=== PATIENT | female | born 1975 | race Caucasian/White ===

== ENCOUNTER 2016-09-12 22:55 | Observation (INO) | payer OTHER ==
[2016-09-12] MEDS ORDERED: ASPIRIN 81 MG CHEW PO STA (23:16)
[2016-09-12] MEDS ORDERED: MORPHINE SULFATE 4 MG/ML SYRINGE IV STA (23:16)
[2016-09-12] MEDS ORDERED: FAMOTIDINE 20 MG/2 ML VIAL IV STA (23:17)
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
[2016-09-12 23:42] LABS: Basophils # (A) 0.2 k/uL (0-0.2); Basophils % (A) 1 %; CH 31.1; Eosinophils # (A) 0.4 k/uL (0-0.7); Eosinophils % (A) 4 %; HCT 46.6 % (34.0-46.0); HDW 2.28; HGB 15.2 gm/dL (11.4-16.0); Luc # (Auto) 0.34; Luc % (Auto) 3; Lymphocytes # (A) 3.1 k/uL (1.0-4.8); Lymphocytes % (A) 26 %; MCH 30.9 pg (25.0-35.0); MCHC 32.6 g/dL (31.0-37.0); MCV 94.9 fL (80.0-100.0); Mean Platelet Volume 7.6; Monocytes # (A) 0.5 k/uL (0-1.0); Monocytes % (A) 4 %; Neutrophils # (A) 7.6 k/uL (1.3-7.7); Neutrophils % (A) 63 %; RBC 4.92 m/uL (3.80-5.40); RDW 13.1 % (11.5-15.5); WBC 12.1 k/uL (3.8-10.6); WBC (Perox) 11.53
[2016-09-12 23:53] LABS: ALT 84 U/L (9-52); AST 33 U/L (14-36); Alkaline Phosphatase 134 U/L (38-126); Anion Gap 12 mmol/L; Blood Urea Nitrogen 17 mg/dL (7-17); Carbon Dioxide 27 mmol/L (22-30); Chloride 102 mmol/L (98-107); Glucose 101 mg/dL (74-99); Magnesium 1.4 mg/dL (1.6-2.3); Non-African American GFR(MDRD) >60 (>60 ml/min/1.73 sqM); Potassium 4.3 mmol/L (3.5-5.1); Sodium 141 mmol/L (137-145); Total Bilirubin 0.3 mg/dL (0.2-1.3); Total Protein 7.7 g/dL (6.3-8.2)
[2016-09-12 23:57] LABS: INR 0.9 (<1.1); Partial Thromboplastin Time 23.7 sec (22.0-30.0); Prothrombin Time 9.5 sec (9.0-12.0)
[2016-09-13 00:09] LABS: Creatine Kinase 40 U/L (30-135)
--- NOTE | 2016-09-13 00:17 | XR ---
EXAM: XR Chest, 2 Views. CLINICAL HISTORY: Reason: Chest Pain TECHNIQUE: Frontal and lateral views of the chest. COMPARISON: Chest x-ray 01/25/16 FINDINGS: Lungs: No consolidation. Pleural space: Unremarkable. No pneumothorax. Heart: Mild cardiomegaly. Mediastinum: Unremarkable. Probable hilar - infrahilar nodes Bones/joints: No acute fracture. IMPRESSION: No consolidation or overt failure.
[2016-09-13] MEDS ORDERED: HYDROmorphone 1 MG/ML 1 ML SYRINGE IVP STA (00:21)
[2016-09-13 00:23] LABS: Creatine Kinase MB <0.2 ng/mL (0.0-2.4); Troponin I <0.012 ng/mL (0.000-0.034)
[2016-09-13] MEDS ORDERED: MAGNESIUM OXIDE 400 MG TAB PO STA (00:31)
[2016-09-13] MEDS ORDERED: HEPARIN SODIUM,PORCINE 5,000 UNIT/ML 1 ML VIAL IV ONE (00:33)
[2016-09-13] MEDS ORDERED: NITROGLYCERIN SL TABS 0.4 MG TAB SUBLINGUAL PRN (00:33)
[2016-09-13] MEDS ORDERED: HEPARIN SODIUM,PORCINE/D5W PMX 25,000 UNIT in DEXTROSE/WATER 1 500ML.BAG IV SCH (00:45)
[2016-09-13 01:52] VITALS: BMI 28.9
[2016-09-13] MEDS ORDERED: ALPRAZolam 0.5 MG TAB PO STA (02:44)
[2016-09-13] MEDS: MORPHINE SULFATE 4 MG/ML SYRINGE IV PRN ×4 (02:51→13:46)
[2016-09-13 05:08] VITALS: RESP 16
[2016-09-13 07:19] LABS: Creatine Kinase 35 U/L (30-135)
[2016-09-13 07:32] LABS: Creatine Kinase MB <0.2 ng/mL (0.0-2.4); Troponin I <0.012 ng/mL (0.000-0.034)
[2016-09-13 08:39] VITALS: PULSE 83
[2016-09-13] MEDS ORDERED: DOBUTamine DRIP for NUC MED 500 MG in DEXTROSE/WATER 1 250ML.BAG IV ONE (08:58)
[2016-09-13] MEDS ORDERED: VENLAFAXINE HCL ER 150 MG CAP PO SCH (09:00)
[2016-09-13] MEDS ORDERED: ALPRAZolam 0.5 MG TAB PO SCH (09:00)
[2016-09-13] MEDS ORDERED: ATENOLOL 50 MG TAB PO SCH (09:00)
[2016-09-13] MEDS ORDERED: ALBUTEROL NEBULIZED 2.5 MG/3 ML INHALATION PRN (09:06)
--- NOTE | 2016-09-13 11:12 | ECHOS ---
DATE OF SERVICE: 09/13/2016 AGE: 40Y SEX: F HT: 67 WT: 184 lbs. Protocol Brendan: Others: Dobutamine Stress Echo Stage: Dur. of Exercise: *Heart Rate Blood Pressure *Rest: 86 Rest: 106/69 * *Max. Achieved: 151 Maximum BP: 132/52 85% PMHR: 151 100% PMHR: 178 *METS: INDICATIONS: Chest pain. MEDICATIONS: Baseline EKG shows sinus rhythm, normal axis, normal intervals. Patient was given intravenous dobutamine over a period of 9 minutes as per protocol achieving 85% of predicted maximal heart rate without chest pain or diagnostic ST segment depression. Baseline echo shows normal left ventricular size, wall motion and systolic function. Postexercise, there is normal hyperdynamic response of all segments of myocardium noted. CONCLUSION: 1. Negative stress test by EKG criteria. 2. Negative stress dobutamine echo.
--- NOTE | 2016-09-13 12:03 | CONS ---
DATE OF CONSULTATION: Patient is allergic to PENICILLIN. REASON FOR CONSULTATION: Cardiac evaluation and treatment, is noted to have ( ) chest pain. Marci Gooden is a mother of 3 children, 1 daughter and 2 sons. Patient is a heavy smoker and has been smoking since age 15 and used to smoke up to 2 packs, currently smoking 1 pack. Has been having recurrent chest pains. Patient was seen with chest pains which are atypical, not classical anginal symptoms, described as a shooting pain under the breast lasting for about 1 to 1-1/2 minutes with some numbness in the left hand one time without any radiation. Patient's pains usually come at rest when she is watching TV not with physical activity. 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 Patient claims her pains get better with nitroglycerin. Last night she has taken 4 sublingual nitroglycerin tablets without any improvement in her symptoms. Patient's EKGs on admission showed sinus tachycardia without any acute ischemic changes. Cardiac enzymes have been negative. The patient did have a stress test was admitted last year in December. Patient walked on the treadmill for 7 minutes without reaching the 85% predicted maximum heart rate. Patient was around 131 when it needs to go up to 140, 150. ( ) patient's atypical symptoms and negative enzymes and history of smoking without any history of hypertension or hyperlipidemia. No history of diabetes. Patient does have strong family history of coronary artery disease. Father of myocardial infarction in his 50s. No history of drug abuse. Patient does not do any regular exercise on a regular basis. The patient is not on any medications on a regular basis. Patient is on antidepressant medications venlafaxine 150 mg p.o. daily, nitroglycerin as needed, aspirin 1 tablet daily, alprazolam as needed 2 or 3 times a day, Patient's past history is unremarkable other than hysterectomy and gallbladder surgery, otherwise unremarkable. Physical examination revealed well-developed, well-nourished 40-year-old female not in any acute distress with a pulse rate of 96 beats per minute and regular, blood pressure 119/77, respirations of 16. HEAD: Normocephalic. HEENT: Unremarkable. NECK: Neck is supple. No thyroid enlargement. No bruit noted. Good carotid upstroke bilaterally. CHEST: Chest is symmetrical. CARDIAC EXAMINATION: Regular rate and rhythm. S1 and S2. Lungs are clinically clear to auscultation and percussion. ABDOMEN: Soft, no organomegaly. Active bowel sounds. EXTREMITIES: Peripheral pulses. No pedal edema. LATHE SPOTTER EXAMINATION: Grossly within normal limits. EKG revealed normal sinus rhythm, normal ST-T waves. Troponin x2 are negative. D-dimer is negative. ASSESSMENT: 1. Atypical chest pains. 2. Strong family history of coronary artery disease in the father. at age 50. 3. Long-standing history of smoking. RECOMMENDATIONS: Proceed with a dobutamine stress echocardiogram. If the dobutamine stress echocardiogram is normal, patient may be able to go home on current medications along with complete cessation of smoking and atenolol and nitroglycerin as needed and aspirin. We will also check the lipid panel. If the lipids are elevated, we will start her on lipid-lowering agent.
[2016-09-13 12:20] LABS: Creatine Kinase 33 U/L (30-135)
[2016-09-13 12:21] VITALS: BP 103/59; TEMP 98.2
[2016-09-13 12:31] LABS: Creatine Kinase MB <0.2 ng/mL (0.0-2.4); Troponin I <0.012 ng/mL (0.000-0.034)
--- NOTE | 2016-09-13 20:36 | HP ---
H&P AND DISCHARGE SUMMARY DATE OF ADMISSION: Patient is a 40-year-old female who came in with complaints of chest pain under the left breast area, sharp in nature, radiating to the left arm. Tightness, relieved with 4 nitroglycerin. Denied any diaphoresis. Denied any nausea or vomiting. Patient had tingling and numbness in the left arm. Patient was admitted here. Patient also described ( ) not associated with food. Patient denied any shortness of breath. ( ) Cardiology. Patient underwent stress test which was negative. Patient was also complaining of some non-specific symptoms, acid reflux symptoms. REVIEW OF SYSTEMS: CONSTITUTIONAL: No fever, no malaise, no fatigue. HEENT: No recent visual problems or hearing problems. Denied any sore throat. CARDIOVASCULAR: As described in HPI. PULMONARY: No shortness of breath, no cough, no hemoptysis. GASTROINTESTINAL: As described in HPI. NEUROLOGICAL: No headaches, no weakness, no numbness. HEMATOLOGICAL: Denies any bleeding or petechiae. GENITOURINARY: Denies any burning micturition, frequency, or urgency. MUSCULOSKELETAL/RHEUMATOLOGICAL: Denies any joint pain, swelling, or any muscle pain. ENDOCRINE: Denies any polyuria or polydipsia. The rest of the 14 point review of systems is negative. Home medications include: 1. Estradiol. 2. Hydrocodone/acetaminophen. 3. Remeron. 4. Venlafaxine. 5. Nitroglycerin sublingually. ALLERGIES: PENICILLIN. PAST MEDICAL HISTORY: Patient states she ( ) myocardial infarction in the past. Chronic low back pain. Degenerative arthritis. Patient had a cardiac catheterization in the past, which I cannot verify at this time. Patient has anxiety disorder. Patient does smoke. Occasionally uses marijuana. Social History: As mentioned in assessment. Family History: Dnied history of premature CAD PHYSICAL EXAMINATION: VITAL SIGNS: Temperature 98.2, pulse of 92, respiratory rate of 18. Blood pressure is 110/68. Patient when she came in was tachycardic. Patient takes atenolol at home. Once she was given atenolol ( ) resolved. GENERAL: The patient is alert and oriented x3, not in any acute distress. Well developed, well nourished. HEENT: Pupils are round and equally reacting to light. EOMI. No scleral icterus. No conjunctival pallor. Normocephalic, atraumatic. No pharyngeal erythema. No thyromegaly. CARDIOVASCULAR: S1 and S2 present. No murmurs, rubs, or gallops. PULMONARY: Chest is clear to auscultation, no wheezing or crackles. ABDOMEN: Soft, nontender, nondistended, normoactive bowel sounds. No palpable organomegaly. MUSCULOSKELETAL: No joint swelling or deformity. EXTREMITIES: No cyanosis, clubbing, or pedal edema. NEUROLOGICAL: Gross neurological examination did not reveal any focal deficits. SKIN: No rashes. LABORATORY DATA: CBC, CMP essentially within normal limits. Serial troponins and chest x-ray and the D-dimer all are negative. ASSESSMENT AND PLAN: 1. Chest pain. Ruled out acute coronary artery syndromes, unstable angina ( ) pulmonary embolism patient does not have any pneumonia. Patient's chest pain is probably either musculoskeletal or patient has narcotic-seeking behavior, and this is related to her malingering for narcotics. Anyway, patient was asked to follow up with her primary care physician ( ) above-mentioned problems, and patient will be discharged today. 2. Hypertension. 3. Depression. 4. Marijuana use. 5. Alcohol use. Provided extensive counseling. Patient will be discharged today to follow up with her primary care physician. Cardiac diet. Activity as tolerated. This dictation is both H&P and discharge summary. [facility]
[2016-09-13] MEDS ORDERED: MIRTAZAPINE 45 MG TABLET PO SCH (21:00)
[2016-09-14] MEDS ORDERED: ASPIRIN 325 MG TAB PO SCH (09:00)
[2016-09-14] MEDS ORDERED: ESTRADIOL 1 MG TAB PO SCH (09:00)
== END 2016-09-13 15:35 | disposition home or self-care (01) ==
LOC: EC 22:55 → 3OBS 09-13 00:36
PROVIDERS: ADMIT Internal Medicine; ATTEND Internal Medicine
DX: R07.89 Other chest pain (principal); F41.9 Anxiety disorder, unspecified; R20.0 Anesthesia of skin; I10 Essential (primary) hypertension; Z76.5 Malingerer [conscious simulation]; F32.9 Major depressive disorder, single episode, unspecified; F12.90 Cannabis use, unspecified, uncomplicated; F17.200 Nicotine dependence, unspecified, uncomplicated; Z88.0 Allergy status to penicillin; Z82.49 Family history of ischemic heart disease and other diseases of the circulatory system; K21.9 Gastro-esophageal reflux disease without esophagitis; Z79.890 Hormone replacement therapy; Z79.899 Other long term (current) drug therapy; I25.2 Old myocardial infarction; M54.9 Dorsalgia, unspecified; M89.29 Other disorders of bone development and growth, multiple sites
CPT/HCPCS: 36415; 93005; 93350; 85379; 83880; 80053; 82550 ×2; 93017; 82553 ×2; 83735; 84484 ×2; 85025; 85610; 85730 ×2; 71020; 99285; 96375 ×3; 96376; G0378; J1250; J2270 ×2; J1644 ×2; J1170; 96366

== ENCOUNTER 2018-08-12 19:51 | Emergency (ER) | payer OTHER ==
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
[2018-08-12 21:36] LABS: Amphetamine Screen,Urine Detected (NotDetected); Barbiturate Screen,Urine Not Detected (NotDetected); Benzodiazepines Screen,Urine Not Detected (NotDetected); Cocaine Screen,Urine Not Detected (NotDetected); Methadone Screen, Urine Not Detected (NotDetected); Opiate Screen,Urine Not Detected (NotDetected); Oxycodone Screen, Urine Not Detected (NotDetected); Phencyclidine Screen,Urine Not Detected (NotDetected); Tricyclic Antidepressant,Urine Not Detected (NotDetected); Urn Cannabinoid Scrn Detected (NotDetected)
[2018-08-12] MEDS ORDERED: KETOROLAC 60 MG/2 ML VIAL IM STA (21:51)
[2018-08-12 22:56] VITALS: BP 121/73; PULSE 71; RESP 18; TEMP 98.4
== END 2018-08-12 22:55 | disposition home or self-care (01) ==
LOC: EC 19:51
DX: F15.90 Other stimulant use, unspecified, uncomplicated (principal); F31.9 Bipolar disorder, unspecified; K04.7 Periapical abscess without sinus; S02.5XXA Fracture of tooth (traumatic), initial encounter for closed fracture; R53.1 Weakness; R42 Dizziness and giddiness; I25.2 Old myocardial infarction; F17.200 Nicotine dependence, unspecified, uncomplicated; G47.30 Sleep apnea, unspecified; Z99.89 Dependence on other enabling machines and devices; Z95.818 Presence of other cardiac implants and grafts; Z88.0 Allergy status to penicillin; X58.XXXA Exposure to other specified factors, initial encounter
CPT/HCPCS: 82075; 80306; 99285; 96372; J1885